=== PATIENT | female | born 1970 | race Caucasian/White ===

== ENCOUNTER 2018-09-13 22:51 | Emergency (ER) | payer MEDICARE, OTHER ==
--- NOTE | 2018-09-13 23:54 | ED ---
Extremity Problem HPI - General Chief complaint: Extremity Problem,Nontraumatic Stated complaint: leg pain Time Seen by Provider: 09/13/18 23:31 Source: patient Mode of arrival: ambulatory Limitations: no limitations - History of Present Illness Initial comments: Zulema is a obese 48yo female who presents to the ED tonight by private vehicle for evaluation of atraumatic right knee pain for 1 week duration. Patient states that 1 week ago she noticed her knee was aching. She describes it as a constant ache that is worse with ambulation but doesnt resolve with rest. She has tried heating pads and ice with no improvement. Tonight she was laying in bed and couldnt get comfortable so she came to the ER for further evaluation. Patient denies any associated symptoms including fever, chills, night sweats. She has no swelling or redness of the joint. - Related Data Home Medications Medication Instructions Recorded Confirmed Amitriptyline HCl [Elavil] 25 mg PO HS 09/13/18 09/13/18 Calcium Polycarbophil [Fiber-Lax] 625 mg PO DAILY 09/13/18 09/13/18 Celecoxib [CeleBREX] 200 mg PO HS 09/13/18 09/13/18 L.acidoph,Paracasei, B.lactis 1 cap PO DAILY 09/13/18 09/13/18 [Probiotic] Pregabalin [Lyrica] 200 mg PO BID 09/13/18 09/13/18 Previous Rx's Medication Instructions Recorded Acetaminophen Tab [Tylenol Tab] 500 mg PO Q6H #60 tablet 09/14/18 Ibuprofen [Motrin] 600 mg PO Q6HR PRN #60 tab 09/14/18 Allergies Allergy/AdvReac Type Severity Reaction Status Date / Time No Known Allergies Allergy Verified 09/13/18 23:06 Review of Systems ROS Statement: Those systems with pertinent positive or pertinent negative responses have been documented in the HPI. ROS Other: All systems not noted in ROS Statement are negative. Past Medical History Past Medical History: Hypertension, Osteoarthritis (OA) History of Any Multi-Drug Resistant Organisms: None Reported Past Surgical History: Appendectomy, Bariatric Surgery, Cholecystectomy, Orthopedic Surgery, Tubal Ligation Additional Past Surgical History / Comment(s): bilateral carpal tunnel; sinus surgery Past Psychological History: No Psychological Hx Reported Smoking Status: Current every day smoker Past Alcohol Use History: None Reported Past Drug Use History: None Reported General Exam - General Exam Comments Initial Comments: Physical Exam GENERAL: Patient is well-developed and well-nourished. Patient is nontoxic and well- hydrated and is in no distress. HENT: Normocephalic, Atraumatic. Edentulous EYES: PERRL, EOMI PULMONARY: Unlabored respirations. CARDIOVASCULAR: RRR ABDOMEN: Obese, Soft and non-distended SKIN: Skin is clear with no lesions or rashes and otherwise unremarkable. : Deferred NEUROLOGIC: Patient is alert and oriented x3. Moving all extremities spontaneously MUSCULOSKELETAL: Right knee with no effusion, no erythema or warmth, negative anterior and posterior drawer tests. Pain with kanwal and raul tests PSYCHIATRIC: Normal psychiatric evaluation. Limitations: no limitations Limitations: no limitations Course Vital Signs 09/13/18 09/14/18 22:55 01:24 Temperature 98.0 F 97.7 F Pulse Rate 91 74 Respiratory 18 15 Rate Blood Pressure 142/90 121/67 O2 Sat by Pulse 100 98 Oximetry Medical Decision Making - Medical Decision Making The patient was seen and evaluated, patient complains of 7 days of chronic aching knee pain, worse with ambulating. Patient has tried heat and ice but no NSAIDs or Tylenol treatment X-ray was ordered Toradol ordered for pain X-ray with no acute findings Patient was reevaluated, was sleeping comfortably in the ER [facility]. I woke the patient discussed the x-ray findings with her. I have a high suspicion for osteoarthritis is cause of her symptoms. I discussed with the patient treatment with Tylenol and Motrin and follow up with primary care with potential referral to sports medicine or orthopedic surgery for further evaluation and discussion of joint injections. All questions pertaining care were answered best my ability patient was discharged home in stable condition. Disposition Clinical Impression: Right knee pain Disposition: HOME SELF-CARE Condition: Good Instructions: Osteoarthritis (DC) Prescriptions: Acetaminophen Tab [Tylenol Tab] 500 mg PO Q6H #60 tablet Ibuprofen [Motrin] 600 mg PO Q6HR PRN #60 tab PRN Reason: Pain Is patient prescribed a controlled substance at d/c from ED?: No Referrals: None,Stated [Primary Care Provider] - 1-2 days
[2018-09-13] MEDS ORDERED: KETOROLAC 30 MG/ML 1 ML VIAL IM STA (23:55)
--- NOTE | 2018-09-14 00:34 | XR ---
EXAMINATION TYPE: XR knee limited RT DATE OF EXAM: 09/14/2018 COMPARISON: NONE HISTORY: Right knee pain and swelling TECHNIQUE: 2 views FINDINGS: I see no fracture nor dislocation. Joint spaces are normal. There is no sign of knee joint effusion. IMPRESSION: Negative right knee exam.
[2018-09-14 01:24] VITALS: BP 121/67; PULSE 74; RESP 15; TEMP 97.7
== END 2018-09-14 01:25 | disposition home or self-care (01) ==
LOC: EC 22:51
DX: M25.561 Pain in right knee (principal); I10 Essential (primary) hypertension; F17.200 Nicotine dependence, unspecified, uncomplicated; Z79.1 Long term (current) use of non-steroidal anti-inflammatories (NSAID); Z79.899 Other long term (current) drug therapy
CPT/HCPCS: 73560; 99283; 96372; J1885

== ENCOUNTER 2019-01-22 20:28 | Emergency (ER) | payer MEDICARE, OTHER ==
[2019-01-22 20:47] VITALS: TEMP 98.7
--- NOTE | 2019-01-22 20:51 | ED ---
Nausea/Vomiting/Diarrhea HPI - General Chief complaint: Nausea/Vomiting/Diarrhea Stated complaint: Abd pain Time Seen by Provider: 01/22/19 20:50 Source: patient, RN notes reviewed, old records reviewed Mode of arrival: ambulatory Limitations: no limitations - History of Present Illness Initial comments: This is a 48-year-old female the ER for evaluation. Patient is a one month of nausea vomiting diarrhea. Denies recent medical history. Patient does have bariatric surgery in her Surgical history. Noprior similar complaint. Patient is has not been doing well again for about a month. She is not been seen prior to these symptoms. She does have underlying fibromyalgia, no new medications or medication changes this MD complaint: nausea, vomiting, diarrhea, abdominal pain, other (Generalized pain) -: month(s) Description of Vomiting: food contents Description of Diarrhea: green Associated Abdominal Pain: Yes Location: diffuse Radiation: none Severity: mild Severity scale (1-10): 3 Quality: cramping, aching Consistency: intermittent Improves with: none Worsens with: none Associated Symptoms: myalgias, loss of appetite, nausea/vomiting, weakness - Related Data Home Medications Medication Instructions Recorded Confirmed No Known Home Medications 01/22/19 01/22/19 Allergies Allergy/AdvReac Type Severity Reaction Status Date / Time No Known Allergies Allergy Verified 01/22/19 20:58 Review of Systems ROS Statement: Those systems with pertinent positive or pertinent negative responses have been documented in the HPI. ROS Other: All systems not noted in ROS Statement are negative. Past Medical History Past Medical History: Fibromyalgia, Hypertension, Osteoarthritis (OA) History of Any Multi-Drug Resistant Organisms: None Reported Past Surgical History: Appendectomy, Bariatric Surgery, Cholecystectomy, Orthopedic Surgery, Tubal Ligation Additional Past Surgical History / Comment(s): bilateral carpal tunnel; sinus surgery Past Psychological History: No Psychological Hx Reported Smoking Status: Current every day smoker Past Alcohol Use History: None Reported Past Drug Use History: None Reported General Exam Limitations: no limitations General appearance: alert, in no apparent distress Head exam: Present: atraumatic, normocephalic, normal inspection Eye exam: Present: normal appearance, PERRL, EOMI. Absent: scleral icterus, conjunctival injection, periorbital swelling ENT exam: Present: normal exam, mucous membranes moist Neck exam: Present: normal inspection. Absent: tenderness, meningismus, lymphadenopathy Respiratory exam: Present: normal lung sounds bilaterally. Absent: respiratory distress, wheezes, rales, rhonchi, stridor Cardiovascular Exam: Present: regular rate, normal rhythm, normal heart sounds. Absent: systolic murmur, diastolic murmur, rubs, gallop, clicks GI/Abdominal exam: Present: soft, normal bowel sounds. Absent: distended, tenderness, guarding, rebound, rigid Extremities exam: Present: normal inspection, full ROM, normal capillary refill. Absent: tenderness, pedal edema, joint swelling, calf tenderness Back exam: Present: normal inspection Neurological exam: Present: alert, oriented X3, CN II-XII intact Psychiatric exam: Present: normal affect, normal mood Skin exam: Present: warm, dry, intact, normal color. Absent: rash Course Vital Signs 01/22/19 20:42 Temperature 98.7 F Pulse Rate 92 Respiratory 20 Rate Blood Pressure 149/105 O2 Sat by Pulse 99 Oximetry - Reevaluation(s) Reevaluation #1: 01/22/19 22:13 Medical record is reviewed Reevaluation #2: 01/22/19 22:13 Patient spoke at length regarding findings, Medical Decision Making - Medical Decision Making 48 female multiple nonspecific symptoms. No acute cause found for patient's symptoms. Patient will be discharged - Lab Data Result diagrams: 01/22/19 21:25 01/22/19 21:25 Lab Results 01/22/19 01/22/19 01/22/19 Range/Units 21:25 21:25 21:25 WBC 6.8 (3.8-10.6) k/uL RBC 4.63 (3.80-5.40) m/uL Hgb 13.8 (11.4-16.0) gm/dL Hct 42.7 (34.0-46.0) % MCV 92.3 (80.0-100.0) fL MCH 29.8 (25.0-35.0) pg MCHC 32.3 (31.0-37.0) g/dL RDW 13.8 (11.5-15.5) % Plt Count 249 (150-450) k/uL Neutrophils % 63 % Lymphocytes % 21 % Monocytes % 9 % Eosinophils % 3 % Basophils % 1 % Neutrophils # 4.3 (1.3-7.7) k/uL Lymphocytes # 1.4 (1.0-4.8) k/uL Monocytes # 0.6 (0-1.0) k/uL Eosinophils # 0.2 (0-0.7) k/uL Basophils # 0.1 (0-0.2) k/uL PT (9.0-12.0) sec INR (<1.2) APTT (22.0-30.0) sec Sodium 140 (137-145) mmol/L Potassium 4.1 (3.5-5.1) mmol/L Chloride 107 (98-107) mmol/L Carbon Dioxide 27 (22-30) mmol/L Anion Gap 6 mmol/L BUN 7 (7-17) mg/dL Creatinine 0.71 (0.52-1.04) mg/dL Est GFR (CKD-EPI)AfAm >90 (>60 ml/min/1.73 sqM) Est GFR (CKD-EPI)NonAf >90 (>60 ml/min/1.73 sqM) Glucose 83 (74-99) mg/dL Calcium 9.5 (8.4-10.2) mg/dL Phosphorus 3.2 (2.5-4.5) mg/dL Magnesium 2.0 (1.6-2.3) mg/dL Total Bilirubin 0.5 (0.2-1.3) mg/dL AST 19 (14-36) U/L ALT 29 (9-52) U/L Alkaline Phosphatase 109 (38-126) U/L Total Protein 7.3 (6.3-8.2) g/dL Albumin 4.0 (3.5-5.0) g/dL Urine Color Urine Appearance (Clear) Urine pH (5.0-8.0) Ur Specific [place] (1.001-1.035) Urine Protein (Negative) Urine Glucose (UA) (Negative) Urine Ketones (Negative) Urine Blood (Negative) Urine Nitrite (Negative) Urine Bilirubin (Negative) Urine Urobilinogen (<2.0) mg/dL Ur Leukocyte Esterase (Negative) Urine WBC (0-5) /hpf Ur Squamous Epith Cells (0-4) /hpf Urine Bacteria (None) /hpf Urine Mucus (None) /hpf Influenza Type A RNA Not Detected (Not Detectd) Influenza Type B (PCR) Not Detected (Not Detectd) 01/22/19 01/22/19 Range/Units 21:25 21:25 WBC (3.8-10.6) k/uL RBC (3.80-5.40) m/uL Hgb (11.4-16.0) gm/dL Hct (34.0-46.0) % MCV (80.0-100.0) fL MCH (25.0-35.0) pg MCHC (31.0-37.0) g/dL RDW (11.5-15.5) % Plt Count (150-450) k/uL Neutrophils % % Lymphocytes % % Monocytes % % Eosinophils % % Basophils % % Neutrophils # (1.3-7.7) k/uL Lymphocytes # (1.0-4.8) k/uL Monocytes # (0-1.0) k/uL Eosinophils # (0-0.7) k/uL Basophils # (0-0.2) k/uL PT 10.2 (9.0-12.0) sec INR 0.9 (<1.2) APTT 23.4 (22.0-30.0) sec Sodium (137-145) mmol/L Potassium (3.5-5.1) mmol/L Chloride (98-107) mmol/L Carbon Dioxide (22-30) mmol/L Anion Gap mmol/L BUN (7-17) mg/dL Creatinine (0.52-1.04) mg/dL Est GFR (CKD-EPI)AfAm (>60 ml/min/1.73 sqM) Est GFR (CKD-EPI)NonAf (>60 ml/min/1.73 sqM) Glucose (74-99) mg/dL Calcium (8.4-10.2) mg/dL Phosphorus (2.5-4.5) mg/dL Magnesium (1.6-2.3) mg/dL Total Bilirubin (0.2-1.3) mg/dL AST (14-36) U/L ALT (9-52) U/L Alkaline Phosphatase (38-126) U/L Total Protein (6.3-8.2) g/dL Albumin (3.5-5.0) g/dL Urine Color Yellow Urine Appearance Cloudy H (Clear) Urine pH 6.0 (5.0-8.0) Ur Specific [place] 1.016 (1.001-1.035) Urine Protein Negative (Negative) Urine Glucose (UA) Negative (Negative) Urine Ketones Negative (Negative) Urine Blood Negative (Negative) Urine Nitrite Negative (Negative) Urine Bilirubin Negative (Negative) Urine Urobilinogen <2.0 (<2.0) mg/dL Ur Leukocyte Esterase Negative (Negative) Urine WBC 1 (0-5) /hpf Ur Squamous Epith Cells 8 H (0-4) /hpf Urine Bacteria Rare H (None) /hpf Urine Mucus Few H (None) /hpf Influenza Type A RNA (Not Detectd) Influenza Type B (PCR) (Not Detectd) - EKG Data -: EKG Interpreted by Me (EKG shows sinus rhythm rate of 82, TX 120, QRS 70, QTc 4:30) - Radiology Data Radiology results: report reviewed (CT chest abdomen pelvis is negative for acute disae), image reviewed Disposition Clinical Impression: Nausea & vomiting, Dehydration, Diarrhea Disposition: HOME SELF-CARE Condition: Good Instructions (If sedation given, give patient instructions): Acute Nausea and Vomiting (ED), Acute Diarrhea (ED) Is patient prescribed a controlled substance at d/c from ED?: No Referrals: Nataliya Jacinto DO [Primary Care Provider] - 1-2 days
[2019-01-22] MEDS ORDERED: SODIUM CHLORIDE 0.9% 1,000 ML IV STA (20:57)
[2019-01-22] MEDS ORDERED: KETOROLAC 30 MG/ML 1 ML VIAL IVP STA (20:58)
[2019-01-22] MEDS ORDERED: ACETAMINOPHEN IV (For NPO) 1,000 MG in EMPTY BAG 1 BAG IVPB ONE (21:00)
[2019-01-22 21:49] LABS: Basophils # (A) 0.1 k/uL (0-0.2); Basophils % (A) 1 %; Eosinophils # (A) 0.2 k/uL (0-0.7); Eosinophils % (A) 3 %; HCT 42.7 % (34.0-46.0); HGB 13.8 gm/dL (11.4-16.0); Lymphocytes # (A) 1.4 k/uL (1.0-4.8); Lymphocytes % (A) 21 %; MCH 29.8 pg (25.0-35.0); MCHC 32.3 g/dL (31.0-37.0); MCV 92.3 fL (80.0-100.0); Mean Platelet Volume 8.7; Monocytes # (A) 0.6 k/uL (0-1.0); Monocytes % (A) 9 %; Neutrophils # (A) 4.3 k/uL (1.3-7.7); Neutrophils % (A) 63 %; Platelet Count 249 k/uL (150-450); RBC 4.63 m/uL (3.80-5.40); RDW 13.8 % (11.5-15.5); WBC 6.8 k/uL (3.8-10.6)
[2019-01-22 22:00] LABS: INR 0.9 (<1.2); Partial Thromboplastin Time 23.4 sec (22.0-30.0); Prothrombin Time 10.2 sec (9.0-12.0)
[2019-01-22 22:03] LABS: Appearance,Urine Cloudy (Clear); Bacteria,Urine Rare /hpf; Bilirubin,Urine Negative (Negative); Blood,Urine Negative (Negative); Color,Urine Yellow; Glucose,Urine (UA) Negative (Negative); Ketones,Urine Negative (Negative); Leukocyte Esterase,Urine Negative (Negative); Mucus,Urine Few /hpf; Nitrite,Urine Negative (Negative); Protein,Urine Negative (Negative); Specific Gravity,Urine 1.016 (1.001-1.035); Squamous Epithelial Cell,Urine 8 /hpf (0-4); Urobilinogen,Urine <2.0 mg/dL (<2.0)
--- NOTE | 2019-01-22 22:04 | CT ---
EXAMINATION TYPE: CT ChestAbdPelvis w con DATE OF EXAM: 01/22/2019 COMPARISON: CT abdomen and pelvis February 06, 2012. HISTORY: Cough, congestion and generalized abdomen pain. CT DLP: 1898.2 mGycm. Automated Exposure Control for Dose Reduction was Utilized. CONTRAST: CT scan of the thorax, abdomen and pelvis is performed without oral but with IV Contrast, patient inj ected with 100 mL of Isovue 300. FINDINGS: LUNGS: The lungs are grossly clear, there is no concerning parenchymal mass or nodule identified. T here is no pleural effusion or pneumothorax seen. The tracheobronchial tree is patent. MEDIASTINUM: There are no greater than 1 cm hilar or mediastinal lymph nodes. No cardiomegaly or pe ricardial effusion is seen. OTHER: No additional significant abnormality is seen. LIVER/GB: Cholecystectomy clips are redemonstrated. PANCREAS: No significant abnormality is seen. SPLEEN: No significant abnormality is seen. ADRENALS: No significant abnormality is seen. KIDNEYS: No significant abnormality is seen. BOWEL: No suspicious small or large bowel dilatation is present. Surgical sutures from gastric sleev e procedure are now present epigastric region. GENITAL ORGANS: Anteverted uterus is seen. LYMPH NODES: No greater than 1cm abdominal or pelvic lymph nodes are appreciated. OSSEOUS STRUCTURES: No significant abnormality is seen. OTHER: No significant additional abnormality is seen. IMPRESSION: 1. No suspicious acute pulmonary process. 2. No bowel obstruction. No acute finding identified.
[2019-01-22 22:10] LABS: ALT 29 U/L (9-52); AST 19 U/L (14-36); Alkaline Phosphatase 109 U/L (38-126); Anion Gap 6 mmol/L; Blood Urea Nitrogen 7 mg/dL (7-17); Calcium 9.5 mg/dL (8.4-10.2); Carbon Dioxide 27 mmol/L (22-30); Chloride 107 mmol/L (98-107); Glucose 83 mg/dL (74-99); Phosphorus 3.2 mg/dL (2.5-4.5); Potassium 4.1 mmol/L (3.5-5.1); Sodium 140 mmol/L (137-145); Total Bilirubin 0.5 mg/dL (0.2-1.3); Total Protein 7.3 g/dL (6.3-8.2)
[2019-01-22 23:12] VITALS: BP 123/81; PULSE 71; RESP 16
[2019-01-23 15:43] LABS: RBC,Urine 1 /hpf (0-5)
== END 2019-01-22 23:15 | disposition home or self-care (01) ==
LOC: EC 20:28
DX: E86.0 Dehydration (principal); R11.2 Nausea with vomiting, unspecified; R19.7 Diarrhea, unspecified; R10.84 Generalized abdominal pain; M19.90 Unspecified osteoarthritis, unspecified site; F17.200 Nicotine dependence, unspecified, uncomplicated; Z90.49 Acquired absence of other specified parts of digestive tract; Z98.84 Bariatric surgery status
CPT/HCPCS: 36415; 93005; 83880; 80053; 83605; 83735; 84100; 84443; 84484; 85025; 85610; 85730; 81001; 87502; 71260; 74177; 99285; 96374; 96375; J1885; J0131; Q9967

== ENCOUNTER 2019-04-16 23:47 | Emergency (ER) | payer MEDICARE, OTHER ==
--- NOTE | 2019-04-16 23:50 | ED ---
General Adult HPI - General Stated complaint: Headache Time Seen by Provider: 04/16/19 23:49 - History of Present Illness Initial comments: Zulema is a 48-year-old female with history of chronic headaches who presents the emergency department today for evaluation of headache. Patient reports that she has cervical spine fusion at [facility] approximately a month ago, she is currently wearing a cervical collar. She reports that since that surgery she's not been experiencing any headaches. She states that she was in her usual state of health throughout the day today. She was outside running errands all day with out any complaints. She reports that upon arrival home he somewhat nauseated to then decided to sit down in her chair to relax and get more comfortable, at which time she developed a pounding headache similar in character to previous headaches. Patient reports that while sitting in her chair the headache got worse she felt as though she cannot move her entire body or speak. She states she felt like the pain was so bad she was going to pass out. She never lost consciousness. She then asked her family to contact EMS to bring the hospital for evaluation. Headache was not sudden in onset, was not thunderclap, is not the worse headache of her life, is similar to previous headaches. - Related Data Home Medications Medication Instructions Recorded Confirmed Gabapentin [Neurontin] 300 mg PO TID 04/17/19 04/17/19 traMADol HCL [Ultram] 50 mg PO Q6HR PRN 04/17/19 04/17/19 Allergies Allergy/AdvReac Type Severity Reaction Status Date / Time No Known Allergies Allergy Verified 04/16/19 23:58 Review of Systems ROS Statement: Those systems with pertinent positive or pertinent negative responses have been documented in the HPI. ROS Other: All systems not noted in ROS Statement are negative. Past Medical History Past Medical History: Fibromyalgia, Hypertension, Osteoarthritis (OA) Additional Past Medical History / Comment(s): morbid obesity History of Any Multi-Drug Resistant Organisms: None Reported Past Surgical History: Appendectomy, Bariatric Surgery, Cholecystectomy, Orthopedic Surgery, Tubal Ligation Additional Past Surgical History / Comment(s): bilateral carpal tunnel; sinus surgery Past Psychological History: No Psychological Hx Reported Smoking Status: Current every day smoker Past Alcohol Use History: None Reported Past Drug Use History: None Reported General Exam - General Exam Comments Initial Comments: GENERAL: Patient is well-developed and well-nourished. Patient is nontoxic and well-hydrated and is in no distress. HENT: Normocephalic, Atraumatic. Oropharynx is clear. Dry mucous membranes. Cervical spine in the hard collar Edentulous EYES: The sclera were anicteric and conjunctiva were pink and moist. Extraocular movements were intact and pupils were equal round and reactive to light. Eyelids were unremarkable. PULMONARY: Unlabored respirations. Good breath sounds bilaterally. No audible rales rhonchi or wheezing was noted. CARDIOVASCULAR: There is a regular rate and rhythm without any murmurs gallops or rubs. ABDOMEN: Obese, soft and nontender with normal bowel sounds. SKIN: Skin is clear with no lesions or rashes and otherwise unremarkable. NEUROLOGIC: Patient is alert and oriented x3. Cranial nerves II through XII are grossly intact. Motor and sensory are also intact. Normal speech, volume and content. Symmetrical smile. MUSCULOSKELETAL: Normal extremities with adequate strength and full range of motion. No lower extremity swelling or edema. No calf tenderness. PSYCHIATRIC: Anxious Course Vital Signs 04/16/19 04/17/19 23:50 01:19 Temperature 98 F 98.3 F Pulse Rate 64 93 Respiratory 18 16 Rate Blood Pressure 146/100 128/88 O2 Sat by Pulse 98 98 Oximetry - Reevaluation(s) Reevaluation #1: 04/17/19 01:03 Patient was re-evaluated, she was sleeping comfortably, I woke the patient and discussed her lab and CT results with her. At this time the patient is feeling much better her headache is resolved and she is comfortable with the plan for discharge home. Medical Decision Making - Medical Decision Making The patient was seen and evaluated history was obtained from EMS and the patient As a 48-year-old female with a history of chronic headaches, has not had a he adache or migraine for approximately one month presenting today with a headache that developed this evening he began with nausea and then developed into a headache. Patient felt for transient moment that she cannot move her entire body Ur speak, this resolved, she also states feeling as though the pain was so bad she would pass out however she did not lose consciousness or have altered mental status. Headache is not associated with any fevers, chills, vision changes and it was not sudden in onset, it is not thunderclap, it is similar to previous headaches. Will obtain a computed tomography scan of the head and treat for migraine CT head unremarkable Patient sleeping comfortably, would like to be discharged home. - Lab Data Result diagrams: 04/17/19 00:05 04/17/19 00:05 Lab Results 04/17/19 04/17/19 Range/Units 00:05 00:05 WBC 8.3 (3.8-10.6) k/uL RBC 4.38 (3.80-5.40) m/uL Hgb 13.0 (11.4-16.0) gm/dL Hct 39.1 (34.0-46.0) % MCV 89.3 (80.0-100.0) fL MCH 29.7 (25.0-35.0) pg MCHC 33.2 (31.0-37.0) g/dL RDW 13.6 (11.5-15.5) % Plt Count 225 (150-450) k/uL Neutrophils % 72 % Lymphocytes % 19 % Monocytes % 4 % Eosinophils % 4 % Basophils % 1 % Neutrophils # 5.9 (1.3-7.7) k/uL Lymphocytes # 1.6 (1.0-4.8) k/uL Monocytes # 0.3 (0-1.0) k/uL Eosinophils # 0.3 (0-0.7) k/uL Basophils # 0.1 (0-0.2) k/uL Sodium 142 (137-145) mmol/L Potassium 3.5 (3.5-5.1) mmol/L Chloride 110 H (98-107) mmol/L Carbon Dioxide 21 L (22-30) mmol/L Anion Gap 11 mmol/L BUN 7 (7-17) mg/dL Creatinine 0.71 (0.52-1.04) mg/dL Est GFR (CKD-EPI)AfAm >90 (>60 ml/min/1.73 sqM) Est GFR (CKD-EPI)NonAf >90 (>60 ml/min/1.73 sqM) Glucose 94 (74-99) mg/dL Calcium 9.2 (8.4-10.2) mg/dL Magnesium 2.1 (1.6-2.3) mg/dL Total Bilirubin 0.4 (0.2-1.3) mg/dL AST 16 (14-36) U/L ALT 10 (9-52) U/L Alkaline Phosphatase 110 (38-126) U/L Total Protein 7.3 (6.3-8.2) g/dL Albumin 4.1 (3.5-5.0) g/dL Disposition Clinical Impression: Headache Disposition: ADMITTED IP TO THIS [facility] Condition: Stable Instructions (If sedation given, give patient instructions): Acute Headache (ED) Is patient prescribed a controlled substance at d/c from ED?: No Referrals: Nataliya Jacinto DO [Primary Care Provider] - 1-2 days
[2019-04-16] MEDS ORDERED: METOCLOPRAMIDE 5 MG/ML 2 ML VIAL IVP STA (23:57)
[2019-04-16] MEDS ORDERED: diphenhydrAMINE 50 MG/ML 1 ML VIAL IVP STA (23:57)
[2019-04-16] MEDS ORDERED: SODIUM CHLORIDE 0.9% 1,000 ML IV STA (23:57)
[2019-04-17 00:29] LABS: Basophils # (A) 0.1 k/uL (0-0.2); Basophils % (A) 1 %; Eosinophils # (A) 0.3 k/uL (0-0.7); Eosinophils % (A) 4 %; HCT 39.1 % (34.0-46.0); Lymphocytes # (A) 1.6 k/uL (1.0-4.8); Lymphocytes % (A) 19 %; MCH 29.7 pg (25.0-35.0); MCHC 33.2 g/dL (31.0-37.0); MCV 89.3 fL (80.0-100.0); Mean Platelet Volume 8.5; Monocytes # (A) 0.3 k/uL (0-1.0); Monocytes % (A) 4 %; Neutrophils # (A) 5.9 k/uL (1.3-7.7); Neutrophils % (A) 72 %; Platelet Count 225 k/uL (150-450); RBC 4.38 m/uL (3.80-5.40); RDW 13.6 % (11.5-15.5); WBC 8.3 k/uL (3.8-10.6)
[2019-04-17 00:44] LABS: ALT 10 U/L (9-52); AST 16 U/L (14-36); African American GFR (CKD) >90 (>60 ml/min/1.73 sqM); Albumin 4.1 g/dL (3.5-5.0); Alkaline Phosphatase 110 U/L (38-126); Anion Gap 11 mmol/L; Blood Urea Nitrogen 7 mg/dL (7-17); Calcium 9.2 mg/dL (8.4-10.2); Carbon Dioxide 21 mmol/L (22-30); Chloride 110 mmol/L (98-107); Glucose 94 mg/dL (74-99); Magnesium 2.1 mg/dL (1.6-2.3); Potassium 3.5 mmol/L (3.5-5.1); Sodium 142 mmol/L (137-145); Total Bilirubin 0.4 mg/dL (0.2-1.3); Total Protein 7.3 g/dL (6.3-8.2)
--- NOTE | 2019-04-17 00:50 | CT ---
EXAM: CT Head Without Intravenous Contrast CLINICAL HISTORY: Headache TECHNIQUE: Axial computed tomography images of the head/brain without intravenous contrast. CTDI is 0.085, 0.085, 49.1 mGy and DLP is 1056.4 mGy-cm. This CT exam was performed using one or more of the following dose reduction techniques: automated exposure control, adjustment of the mA and/or kV according to patient size, and/or use of iterative reconstruction technique. COMPARISON: No relevant prior studies available. FINDINGS: Brain: No acute infarct, hemorrhage, mass or edema. No significant white matter disease. Ventricles: Unremarkable. No ventriculomegaly. Bones/joints: Unremarkable. No acute fracture. Soft tissues: Unremarkable. Sinuses: Mild mucosal thickening the paranasal sinuses. Mastoid air cells: Unremarkable as visualized. No mastoid effusion. IMPRESSION: No acute findings.
[2019-04-17 01:33] VITALS: BP 128/88; PULSE 93; RESP 16; TEMP 98.3
== END 2019-04-17 01:19 | disposition other institution (70) ==
LOC: EC 23:47
DX: R51 Headache (principal); G89.29 Other chronic pain; M79.7 Fibromyalgia; F17.200 Nicotine dependence, unspecified, uncomplicated; E66.01 Morbid (severe) obesity due to excess calories; Z68.42 Body mass index [BMI] 45.0-49.9, adult; Z79.899 Other long term (current) drug therapy; Z98.1 Arthrodesis status; Z98.84 Bariatric surgery status
CPT/HCPCS: 36415; 80053; 83735; 85025; 70450; 99285; 96374; 96375; 96361; J1200; J2765

== ENCOUNTER → 2019-07-06 | Outpatient (CLI) | payer MEDICARE, OTHER ==
--- NOTE | 2019-07-06 11:00 | XR ---
EXAMINATION TYPE: XR foot complete LT DATE OF EXAM: 07/06/2019 COMPARISON: NONE HISTORY: Pain TECHNIQUE: Three views are submitted. FINDINGS: The osseous structures are intact. There is no acute fracture or dislocation. Mild arthropathy of the first plantar calcaneal spur noted. Hammertoe deformities noted. IMPRESSION: 1. Mild first MTP joint arthropathy. 2. Calcaneal spurs.
--- NOTE | 2019-07-07 07:50 | ECHOS ---
STRESS ECHOCARDIOGRAM DATE OF SERVICE: 07/06/2019 INDICATIONS: Chest pain. MEDICATIONS: BASELINE HEART RATE: 63 BASELINE BLOOD PRESSURE: 100/65 MAXIMUM HEART RATE: 140 MAXIMUM BLOOD PRESSURE: 161/45 85% MPHR: 147 100% MPHR: 173 METS: 9.5 MAXIMUM STAGE REACHED: III TOTAL EXERCISE TIME: 8 minutes CLINICAL INFORMATION: STRESS DATA: Heart rate 63, pressure is 100/65 mmHg. Baseline EKG showed sinus mechanism with T-wave inversion in the inferolateral leads. The patient exercised on the treadmill according to Kamlesh protocol for a total of 8 minutes and achieved 9.5 METs. Max heart rate was 140 which is about 83% of maximum predicted heart rate. Maximum blood pressure was 161/45 mmHg. Clinically, the patient did not have any symptoms of chest pain or chest discomfort. The EKG showed extensive baseline artifact, but there was no obvious ST or T-wave abnormalities concerning for ischemia. ANALYSIS: On echocardiogram images from parasternal long axis view, parasternal short axis view, apical 4 chamber and apical 2 chamber view were obtained as the baseline images, at the peak of the heart rate as well as on recovery and the echocardiogram images showed good augmentation in the left ventricular systolic function without any evidence of wall motion abnormalities concerning for ischemia. CONCLUSION: 1. Good exercise tolerance. 2. Normal EKG in response to exercise. 3. Normal echocardiogram in response to exercise. MMODL / IJN: [id number] /
== END | disposition home or self-care (01) ==
LOC: RADNMMAIN 09:42
PROVIDERS: ATTEND Family Medicine
DX: R07.9 Chest pain, unspecified (principal); M19.072 Primary osteoarthritis, left ankle and foot
CPT/HCPCS: 93351

== ENCOUNTER → 2019-09-08 | Outpatient (CLI) | payer MEDICARE, OTHER ==
[2019-09-08 13:28] VITALS: BP 127/91; PULSE 77; RESP 18; TEMP 98.2; BMI 38.5
--- NOTE | 2019-09-08 14:38 | P.GSHP ---
History of Present Illness H&P Date: 09/08/19 Chief Complaint: abnromal mammogram Zulema is a 49 year old white female who had a routine mammogram performed on 9618. This revealed some nodular asymmetry in the lateral aspect of the left breast for which a diagnostic mammogram was recommended this was performed on 1318. This revealed a 6 mm in diameter density not present on prior mammograms. An ultrasound was performed and ultrasound did not show any cystic or solid lesions of concern. The patient herself does not feel anything of concern in her breast. The patient denies any masses nipple discharge or skin changes. She has had 2 prior left breast core biopsies which were benign. Her last biopsy was over ten years ago. She complains of a throbbing sensation in her left breast. It is intermittent. She is uncertain as to what precipitated. In the inferior lower quadrants of the breast. It does not spread any place. She drinks Mountian Dew 3/20 oz /day, no coffee; Smokes <1PPD, she is not exposed to second hand smoke, she does not eat chocolate Family History: maternal aunt: of breast cancer in 40's paternal aunt: bilateral mastectomy, bilateral breast cancer Hormonal History: menarche: 12 , 1 miscarage, breast fed: none, first born at 22 menopasue:ablation done at 41 no periods since than, uncertain if have gone through menopause BCP: 15 years hormones: none Surgical history: 1. Cervical fusion 2. tubal Ligation 3. Bilateral carpal tunnel 4. cholycystectomy 5. weight loss surgery 6. appendectomy Medical History: 1. asthma 2. back pain/ DJD Social History: smoke: less than 1 PPD stopped since 18 alcohol: none drugs: none - Constitutional Constitutional: Denies chills, Denies fever - EENT Eyes: bilateral blurred vision, bilateral pain Ears: bilateral: tinnitus, deny: decreased hearing Ears, nose, mouth and throat: Reports headache - Breasts Breasts: bilateral: as per HPI - Cardiovascular Cardiovascular: Reports high blood pressure - Respiratory Respiratory: Denies cough, Denies 7 - Gastrointestinal Gastrointestinal: Reports diarrhea, Denies abdominal pain, Denies nausea, Denies vomiting - Genitourinary (Female) Genitourinary: Denies dysuria, Denies hematuria - Menstruation Menstruation: Reports premenarcheal - Musculoskeletal Comment: arthritis, DJD, fibromyalgia Musculoskeletal: Reports myalgias - Integumentary Integumentary: Denies pruritus, Denies rash - Neurological Neurological: Denies numbness, Denies weakness - Psychiatric Psychiatric: Reports anxiety - Endocrine Comment: loosing weight not related to surgery Endocrine: Reports weight change - Hematologic/Lymphatic Comment: none - Allergic/Immunologic Allergic/Immunologic: Reports seasonal allergies Past Medical History Past Medical History: Fibromyalgia, Hypertension, Osteoarthritis (OA) Additional Past Medical History / Comment(s): morbid obesity History of Any Multi-Drug Resistant Organisms: None Reported Date of last positivie culture/infection: 2010 MDRO Source:: left arm Past Surgical History: Appendectomy, Bariatric Surgery, Cholecystectomy, Orthopedic Surgery, Tubal Ligation Additional Past Surgical History / Comment(s): bilateral carpal tunnel; sinus surgery Past Psychological History: No Psychological Hx Reported Smoking Status: Current every day smoker Past Alcohol Use History: None Reported Past Drug Use History: None Reported Medications and Allergies Home Medications Medication Instructions Recorded Confirmed Type Pregabalin [Lyrica] 50 mg PO TID 09/08/19 09/08/19 History Allergies Allergy/AdvReac Type Severity Reaction Status Date / Time No Known Allergies Allergy Verified 09/08/19 13:28 Surgical - Exam Vital Signs Temp Pulse Resp BP Pulse Ox 98.2 F 77 18 127/91 98 09/08/19 13:25 09/08/19 13:25 09/08/19 13:25 09/08/19 13:25 09/08/19 13:25 BMI 38.5 - General obese - Eyes normal ocular movement - ENT no hearing loss, no congestion - Neck no masses, trachea midline, no lymphadectomy - Respiratory normal respiratory effort, clear to auscultation - Cardiovascular Rhythm: regular Heart Sounds: normal: S1, S2 - Abdomen Abdomen: soft, non tender, no guarding, no rigid, no rebound - Integumentary normal turgor - Neurologic no disoriented, no combative - Musculoskeletal normal gait, normal posture - Psychiatric oriented to time, oriented to person, oriented to place, speech is normal, memory intact breast exam: bra 42DD ptosis: Grade 3 right breast larger than left breast Right breast: Multi-positional exam fibrocystic changes, no dominant masses or nodules of concern Right axilla: No adenopathy of concern Left breast: Multiple positional exam increased fullness upper-outer quadrant area tender to palpation no definite discrete mass or nodule Left axilla: No adenopathy of concern Results Mammogram reviewed with radiology, the recommendation is that the nodularity appears to be new and stereotactic core biopsy is recommended. Assessment and Plan Assessment: Impression: 1. Mammographic abnormality left breast 2. Pain left breast 3. Caffeine via Mountain Dew and nicotine via smoking consumption most likely contributing to fibrocystic breast changes and pain 4. Fibrocystic breast changes 5. Family history of breast cancer on both maternal and paternal side 6. Arthritis 7. Headaches 8. GI urgency/diarrhea 9. DJD Plan: 1. Recommend stereotactic core biopsy left breast 2. We must take into consideration the patient's arthritis and degenerative joint disease causing it to be more uncomfortable and possibly difficult for her to lay on the stereo table, I discussed this with her and she is going to attempt to do so. 3. I discussed the cause of breast pain may be related to the Mountain Dew and cigarette smoking and the patient is going to attempt to decrease her consumption of these things 4. Medical management of medical conditions 5. Follow-up after stereotactic core biopsy 35 minutes spent with patient > 50% face time CC:Dr. Bach
== END | disposition home or self-care (01) ==
LOC: WWCWWP 13:12
PROVIDERS: ATTEND Surgery
DX: Z53.9 Procedure and treatment not carried out, unspecified reason (principal)

== ENCOUNTER → 2019-11-03 | Day surgery (SDC) | payer MEDICARE, OTHER ==
[2019-11-03 09:18] VITALS: BP 117/86; PULSE 56; RESP 16; TEMP 97.5
--- NOTE | 2019-11-03 09:25 | MM ---
EXAMINATION TYPE: MG stereo VAD BX LT DATE OF EXAM: 11/03/2019 COMPARISON: Outside mammograms dated 07/08/2019 and 07/15/2019 CLINICAL HISTORY: Left breast biopsy for left focal asymmetry. TECHNIQUE: Stereotactic guided core biopsy of left breast. FINDINGS: The procedure of stereotactic guided core biopsy was explained to the patient. Benefits, alternatives, and risks were discussed. An informed consent was then obtained. Preprocedural timeout was performed. [facility] was [facility]. Shortness pathway was CC from above approach. I performed the localization, then surgeon, Dr. Abhijeet Frank performed the remainder of the procedure. A vacuum assisted biopsy gun was used to obtain multiple core samples. The patient tolerated the procedure well without any immediate complication. The patient was kept in the radiology department for short stay after the procedure and then discharged home in stable condition. Targeted calcifications are identified in specimen mammogram. Post biopsy mammogram demonstrates questionable placement of the biopsy marker relative to the targeted area of concern on the preprocedure images. There is a small hematoma obscuring the left lower outer quadrant focal asymmetry. IMPRESSION: SUCCESSFUL, UNCOMPLICATED STEREOTACTIC GUIDED CORE BIOPSY OF AREA OF A LEFT LOWER OUTER QUADRANT FOCAL ASYMMETRY, FULL PATHOLOGY RESULTS TO FOLLOW. IF RAD/PATHOLOGIC CORRELATION IS DISCORDANT THE PATIENT SHOULD BE BROUGHT BACK FOR ADDITIONAL MLO AND CC VIEWS TO ASSESS FOR BIOPSY MARKER PLACEMENT IN COMPARISON TO THE ORIGINAL SCREENING MAMMOGRAM. Pathology Results: High Risk LEFT BREAST LESION, NEEDLE CORE BIOPSIES: Fat necrosis, pigmented histiocytes consistent with hemosiderin, fibrocystic changes including intraductal papillomatosis and some evidence of duct ectasia. Negative for malignant neoplasm. Recommendation Surgical consult of the left breast. Intraductal papillomatosis. MTDD
--- NOTE | 2019-11-03 15:01 | P.PCN ---
Date of Procedure: 11/03/19 Preoperative Diagnosis: Mammographic abnormality left breast Postoperative Diagnosis: same Procedure(s) Performed: Left breast stereotactic core biopsy Anesthesia: local Surgeon: Naila Acuña Estimated Blood Loss (ml): 0 Pathology: other (Breast tissue) Condition: stable Disposition: same day Indications for Procedure: 6 mm density in left breast not present on prior mammograms. An ultrasound was performed which did not show evidence of the lesion. Operative Findings: Dense breast tissue Description of Procedure: Zulema is a 49-year-old white female who was noted to have a 6 mm area of density in her left breast on mammographic evaluation. This was not seen on ultrasound. Stereotactic core biopsy was recommended. Risk and benefits of the procedure were discussed with the patient. The patient chose to proceed. The patient was brought to the stereotactic core biopsy room. She was positioned on the stereotactic table. CC from below approach was used. A protective signal operations supervisor film was obtained. The lesion was identified. The lesion was targeted. The breast was prepped using Betadine. 20 mL of 1% lidocaine were used to anesthetize the area of concern. A 9-gauge core biopsy needle was driven to the correct coordinates. This was a 9-gauge vacuum-assisted core rotating biopsy needle. The needle was fired and a radiograph was obtained to show that the needle was in the correct location. This was confirmed and 7 core biopsies were obtained. No radiograph of the specimen was obtained as this was done for density. A secure tate marker was placed. Post biopsy films revealed the marker to be in the correct location. The patient tolerated the procedure in stable condition. The specimen was sent for pathology. The patient will follow-up with Dr. Jha in 1 week.
== END ==
LOC: RADMAMWWP 07:41
PROVIDERS: ATTEND Surgery
DX: N64.1 Fat necrosis of breast (principal); N60.12 Diffuse cystic mastopathy of left breast; N60.42 Mammary duct ectasia of left breast
CPT/HCPCS: 88305; 19081; A4648; J2001

== ENCOUNTER → 2019-11-11 | Outpatient (CLI) | payer MEDICARE, OTHER ==
[2019-11-11 15:57] VITALS: BP 116/79; PULSE 88; RESP 18; TEMP 98.1
--- NOTE | 2019-11-11 16:09 | P.PN ---
Subjective Progress Note Date: 11/11/19 Principal diagnosis: intraductal papilomatosis Denis is a 49-year-old white female status post left breast are detected core biopsy from 1220. Pathology was benign fat necrosis, pigmented histiocytes, fibrocystic changes including intraductal papillomatosis and some duct ectasia. The specimen was negative for malignant neoplasia. The pathology has been reviewed with Dr. Goss there is no intraductal papilloma just intraductal papillomatosis. The patient states she had some ecchymosis following the procedure but otherwise is doing well. Patient's x-rays were visually reviewed with the radiologist. Patient's pathology was discussed with pathology. Objective - Vital Signs Vital signs: Vital Signs Temp 98.1 F 11/11/19 15:54 Pulse 88 11/11/19 15:54 Resp 18 11/11/19 15:54 BP 116/79 11/11/19 15:54 Pulse Ox 99 11/11/19 15:54 Intake & Output 11/10/19 11/11/19 11/11/19 18:59 06:59 18:59 Weight 83.915 kg - Exam BMI 36.1 - Constitutional General appearance: Present: obese - EENT Eyes: Present: EOMI ENT: Present: hearing grossly normal - Respiratory Respiratory: bilateral: CTA - Cardiovascular Rhythm: regular Heart sounds: normal: S1, S2 - Integumentary Integumentary: Present: normal turgor - Musculoskeletal Musculoskeletal: Present: gait normal - Psychiatric Psychiatric: Present: A&O x's 3, appropriate affect, intact judgment & insight - Additional findings Additional findings: Left breast: Biopsy site mild ecchymosis Small hematoma at biopsy site no evidence of infection Assessment and Plan Assessment: Impression: 1. Benign stereotactic core biopsy left breast 2. Fibrocystic breast changes 3. Fat necrosis left breast 4. Intraductal papillomatosis I discussed with the patient that intraductal papillomatosis is different than an intraductal papilloma. This is not felt to be high risk after discussion with the pathologist. I have reviewed her case with the radiologist and he likewise feels that this is not a high risk lesion radiographically. We will therefore most likely repeat left breast mammogram in 6 months time with physician exam at that time. Plan: 1. Left breast mammogram 6 months with physician exam at that time Cc: Dr. Bach Encounter 20 minutes, greater than 50% of time spent counseling and planning Time with Patient: Less than 30
== END ==
LOC: WWCWWP 15:42
PROVIDERS: ATTEND Surgery
DX: Z53.9 Procedure and treatment not carried out, unspecified reason (principal)

== ENCOUNTER → 2020-08-03 | Outpatient (CLI) | payer MEDICARE, OTHER ==
--- NOTE | 2020-08-03 14:39 | MM ---
Reason for exam: additional evaluation requested from prior study. Last mammogram was performed 7 years and 10 months ago. History: Patient has history of high-risk lesion on a previous biopsy at age 49. Family history of breast cancer in aunt at age 40 and premenopausal breast cancer in aunt at age 36. High risk MG stereo VAD BX LT of the left breast, November 03, 2019. Benign stereotactic core biopsy of the left breast, April 20, 2009. Benign US left guided VAD of the left breast, March 30, 2009. Took hormonal contraceptives for 1 year beginning at age 21. Physical Findings: Nurse did not find any significant physical abnormalities on exam. MG 3D Diag Mammo W/Cad SATHISH Bilateral CC and MLO view(s) were taken. Prior study comparison: May 17, 2020, mammogram. July 15, 2019, mammogram. July 08, 2019, mammogram. There are scattered fibroglandular densities. Stable benign calcifications. There is no discrete abnormality. No significant new findings when compared with previous films. These results were verbally communicated with the patient and result sheet given to the patient on 08/03/20. ASSESSMENT: Benign, BI-RAD 2 RECOMMENDATION: Routine screening mammogram of both breasts in 1 year.
== END | disposition home or self-care (01) ==
LOC: RADMAMWWP 13:41
PROVIDERS: ATTEND Surgery
DX: R92.8 Other abnormal and inconclusive findings on diagnostic imaging of breast (principal)
CPT/HCPCS: 77066; G0279; 77062

== ENCOUNTER → 2020-08-08 | Outpatient (CLI) | payer MEDICARE, OTHER ==
[2020-08-08 14:44] VITALS: BP 127/88; PULSE 88; RESP 18; TEMP 98.3; BMI 34.9
--- NOTE | 2020-08-08 16:05 | P.HPBAR ---
Bariatric H&P - History & Physicial H&P Date: 08/08/20 History & Physicial: Visit/CC: new patient Patient initial contact: Initial weight: 81.193 kg Initial weight in pounds: 179.00 Height: 5 ft Initial BMI: 34.9 Last weight: Current weight: 81.193 kg Current weight in pounds: 179.00 Current BMI: 34.9 [place] body weight (based on NIH guidelines): 45.359 kg Excess body weight loss: 0.0% The patient is a 49 year-old F who presents for Bariatric Assessment. She had surgery with Dr. Lopes in 2017. Highest 285 pounds. She has sleeve. She had appendix out same week. She reported acid reflux before her surgery and is coming back. She struggled with keeping her weight loss and now has weight regain. Lowest weight is present. She lost over 100 pounds. Her eating habit has changed. Cannot eat a full sandwich. No vomiting but has nausea and getting worse. She reports constipation for 2 weeks at a time. No recent colonoscopy. No family history of colon cancer. Her mother had a colectomy for another reason, "had to shorten her colon." Colon issues run in the family including her akbar theodore. She reports choking on foods. No food diary journal. She is 2 years out from bariatric labs. She is transferring care. She was living in [place] where [facility]. 1. Labs 2. Esophagram. 3. Hold on EGD after esophagram. Past Medical History Past Medical History: Fibromyalgia, Osteoarthritis (OA) Additional Past Medical History / Comment(s): degenerative disc disease, back pain History of Any Multi-Drug Resistant Organisms: MRSA Year Discovered:: 2010 MDRO Source:: left arm, abdomen Past Surgical History: Ablation, Appendectomy, Bariatric Surgery, Cholecystectomy, Orthopedic Surgery, Tubal Ligation Additional Past Surgical History / Comment(s): bilateral carpal tunnel, sinus surgery, neck fusion, left breast biopsy benign Past Anesthesia/Blood Transfusion Reactions: No Reported Reaction Smoking Status: Current every day smoker Surgical - Exam Vital Signs Temp Pulse Resp BP Pulse Ox 98.3 F 88 18 127/88 98 08/08/20 14:41 08/08/20 14:41 08/08/20 14:41 08/08/20 14:41 08/08/20 14:41 Bariatric Checklist Checklist: Plan: Checklist: EGD: 1. Hiatal hernia: 2. H. Pylori: HgbA1c: Vitamin D: Smoking: Current every day smoker Primary care physician referral: Raquel ESCOBAR) Dr Bach's office Psychiatry clearance: Cardiology clearance: Sleep study: Diet journal: VTE risk score: VTE risk level: Rehab needs at discharge:
[2020-08-08 17:00] LABS: HCT 45.8 % (34.0-46.0); HGB 14.9 gm/dL (11.4-16.0); MCHC 32.6 g/dL (31.0-37.0); MCV 95.2 fL (80.0-100.0); Platelet Count 201 k/uL (150-450); RBC 4.81 m/uL (3.80-5.40); RDW 12.7 % (11.5-15.5); WBC 6.2 k/uL (3.8-10.6)
[2020-08-09 02:34] LABS: Hemoglobin A1C 5.2 % (4.0-6.0)
[2020-08-09 02:35] LABS: Ferritin 124.9 ng/mL (10.0-291.0)
[2020-08-09 02:39] LABS: Folate, Serum 6.6 ng/mL
[2020-08-09 02:49] LABS: % Iron Saturation 18.39 (12.00-45.00); Albumin 4.4 g/dL (3.80-4.90); Albumin/Globulin Ratio 1.57 (1.60-3.17); Anion Gap 9.7 mmol/L (4.00-12.00); BUN/Creat Ratio 11.25 Ratio (12.00-20.00); Calcium 9.6 mg/dL (8.7-10.3); Carbon Dioxide 27.3 mmol/L (21.6-31.8); Chol/HDL Ratio 3.2; Globulin 2.8 g/dL (1.6-3.3); LDL Cholesterol,Calculated 102.2 mg/dL (0.0-131.0); Magnesium 2.1 mg/dL (1.5-2.4); Non-African American GFR(CKD) 87.2 (60.0-200.0); Phosphorus 4.4 mg/dL (2.4-5.1); Potassium 4.3 mmol/L (3.5-5.5); Total Bilirubin 0.5 mg/dL (0.2-1.2); Total Protein 7.2 g/dL (6.2-8.2); VLDL Calculation 16.8 mg/dL (5.00-40.00)
[2020-08-09 04:42] LABS: INR 0.97 (0.90-1.11); Partial Thromboplastin Time 27.8 sec (24.7-29.9); Prothrombin Time 10.4 sec (9.9-11.9)
[2020-08-09 13:26] LABS: Zinc, Serum 76 ug/dL (60-130)
[2020-08-10 12:24] LABS: Vit B1(Thiamine) 68 ug/L (38-122)
[2020-08-11 00:25] LABS: Selenium 112 mcg/L (63-160)
[2020-08-14 12:23] LABS: Vitamin A 38 ug/dL (38-106)
== END | disposition home or self-care (01) ==
LOC: BARWHC3 14:24
PROVIDERS: ATTEND Surgery Plastic and Reconstructive Surgery
DX: Z48.815 Encounter for surgical aftercare following surgery on the digestive system (principal); Z98.84 Bariatric surgery status; E89.1 Postprocedural hypoinsulinemia; K90.89 Other intestinal malabsorption; K74.1 Hepatic sclerosis; N19 Unspecified kidney failure; K50.90 Crohn's disease, unspecified, without complications; D50.8 Other iron deficiency anemias; E44.0 Moderate protein-calorie malnutrition; E55.9 Vitamin D deficiency, unspecified
CPT/HCPCS: 84255; 84134; 84425; 80061; 80053; 82607; 82728; 82525; 82746; 83540; 83550; 83735; 84100; 84443; 84590; 84630; 85027; 85610; 85730; 82306; 83970; 83036; G0463; 99201

== ENCOUNTER → 2020-08-09 | Outpatient (CLI) | payer MEDICARE, OTHER ==
[2020-08-09 13:52] VITALS: BP 110/79; PULSE 87; RESP 12; TEMP 98.5
--- NOTE | 2020-08-09 14:02 | P.PN ---
Subjective Progress Note Date: 08/09/20 Principal diagnosis: Intraductal papillomatosis left breast History of intraductal papillomatosis Zulema is a 49 year old white female who had a routine mammogram performed on 96. This revealed some nodular asymmetry in the lateral aspect of the left breast for which a diagnostic [place] [address]. This revealed a 6 mm in diameter density not present on prior mammograms. An ultrasound was performed and ultrasound did not show any cystic or solid lesions of concern. The patient herself does not feel anything of concern in her breast. The patient denies any masses nipple discharge or skin changes. She has had 2 prior left breast core biopsies which were benign. Her last biopsy was over ten years ago. In November 2019 she underwent a core biopsy stereotactically this revealed fat necrosis, intraductal papillomatosis, negative for malignancy. She has not noted any lumps masses or nodules in her breast. No nipple discharge or skin changes. She has no recent history of any trauma or infection in the breast. She hasd a bilateral mammogram on 08-03-10. This was benign BIRAD 2. She drinks Mountian Dew 2/20 oz /day, no coffee; Smokes <1PPD, she is not exposed to second hand smoke, she does not eat chocolate Family History: maternal aunt: of breast cancer in 40's paternal aunt: bilateral mastectomy, bilateral breast cancer Hormonal History: menarche: 12 , 1 miscarage, breast fed: none, first born at 22 menopasue:ablation done at 41 no periods since than, uncertain if have gone through menopause BCP: 15 years hormones: none Surgical history: 1. Cervical fusion 2. tubal Ligation 3. Bilateral carpal tunnel 4. cholycystectomy 5. weight loss surgery 6. appendectomy Medical History: 1. asthma 2. back pain/ DJD 3. spinal stenosis ROS: HEENT: none Respiratory: none Cardiac: none GI: none : none Musculoskeletal: Spinal stenosis/degenerative disc disease, arthritis Neurologic: Numbness and weakness in hands and legs Psychiatric: Negative Hematologic: Negative Integument: Negative ALLERGIES: Seasonal ALLERGIES Social History: smoke: less than 1 PPD stopped since 18 alcohol: none drugs: none Objective - Exam BMI 34.6 - Constitutional General appearance: Present: average body habitus - EENT Eyes: Present: EOMI ENT: Present: hearing grossly normal - Neck Neck: Present: normal ROM - Respiratory Respiratory: bilateral: CTA - Cardiovascular Rhythm: regular Heart sounds: normal: S1, S2 - Gastrointestinal General gastrointestinal: Present: normal bowel sounds, soft - Integumentary Integumentary: Present: normal turgor - Musculoskeletal Musculoskeletal: Present: gait normal - Psychiatric Psychiatric: Present: A&O x's 3, appropriate affect, intact judgment & insight - Additional findings Additional findings: breast exam: BRA: 44DD inspection: Bilateral grade 3 ptosis Palpation: Right breast: Multi-positional exam fibrocystic changes, no dominant masses or nodules of concern Right axilla: No adenopathy of concern left breast: Multiple positional exam fibrocystic changes, no dominant masses or nodules of concern Left axilla: No adenopathy of concern Assessment and Plan Assessment: Impression: 1. asthma 2. back pain/ DJD 3. spinal stenosis 4. Bilateral fibrocystic breast changes Plan: 1. Medical management of medical conditions 2. Repeat bilateral mammogram in 1 year with physician exam at that time 3. If patient notes any changes or concerns she will see us sooner CC: DR. Bach encounter 15 minutes, > 50% of time in planning and counselling
== END | disposition home or self-care (01) ==
LOC: WWCWWP 13:37
PROVIDERS: ATTEND Surgery
DX: Z53.9 Procedure and treatment not carried out, unspecified reason (principal)

== ENCOUNTER 2023-11-05 15:18 | Emergency (ER) | payer MEDICARE, OTHER ==
--- NOTE | 2023-11-05 15:46 | ED ---
General Adult HPI - General Source: patient, RN notes reviewed Mode of arrival: ambulatory Limitations: no limitations <Parish Wallace - Last Filed: 11/05/23 15:45> <Mariposa Bhardwaj - Last Filed: 11/06/23 01:18> - General Stated complaint: Withdrawal from her medications Time Seen by Provider: 11/05/23 15:45 - History of Present Illness Initial comments: 53-year-old female presents emergency Department chief complaint of weakness. Patient states that she feels like she may be withdrawing from her Lyrica. She states that she has not had her Lyrica since [place] time. Patient states that she's been through withdrawal before but states this is lasting longer than usual. She states she just couldn't make her primary care physician so she did not have her medications. Patient denies any chest pain she's had nausea, generalized weakness, overall not feeling well mild congestion. (Parish Wallace) 53-year-old female presents emergency Department for evaluation of nausea and mild headaches. She states that she thinks she is withdrawing from her Lyrica. She states her last dose was at [place]. She states this his symptoms started the day following [place]. She reports that she has been through withdrawal in the past with this medication but feels that her symptoms are lasting longer than they typically do. She states that she typically takes 200 mg twice a day. She has not been able to get into her primary care provider since it is about 1 hour away from where she lives. She denies chest pain, shortness of breath. She admits to nausea without vomiting. (Mariposa Bhardwaj) - Related Data Home Medications Medication Instructions Recorded Confirmed DULoxetine HCL [Cymbalta] 30 mg PO HS 05/18/20 08/09/20 Cyclobenzaprine [Flexeril] 5 mg PO HS 08/08/20 08/09/20 Pregabalin [Lyrica] 150 mg PO DAILY 08/08/20 08/09/20 Allergies Allergy/AdvReac Type Severity Reaction Status Date / Time No Known Allergies Allergy Verified 08/09/20 13:40 Review of Systems ROS Other: All systems not noted in ROS Statement are negative. <Parish Wallace - Last Filed: 11/05/23 15:45> ROS Other: All systems not noted in ROS Statement are negative. <Mariposa Bhardwaj - Last Filed: 11/06/23 01:18> ROS Statement: Those systems with pertinent positive or pertinent negative responses have been documented in the HPI. Past Medical History Past Medical History: Fibromyalgia, Osteoarthritis (OA) Additional Past Medical History / Comment(s): degenerative disc disease, back pain History of Any Multi-Drug Resistant Organisms: MRSA Date of last positivie culture/infection: 2010 MDRO Source:: left arm, abdomen Past Surgical History: Ablation, Appendectomy, Bariatric Surgery, Cholecystectomy, Orthopedic Surgery, Tubal Ligation Additional Past Surgical History / Comment(s): bilateral carpal tunnel, sinus surgery, neck fusion, left breast biopsy benign Past Anesthesia/Blood Transfusion Reactions: No Reported Reaction Smoking Status: Current every day smoker <Parish Wallace - Last Filed: 11/05/23 15:45> General Exam <Parish Wallace - Last Filed: 11/05/23 15:45> Limitations: no limitations General appearance: alert, in no apparent distress Head exam: Present: atraumatic, normocephalic, normal inspection Eye exam: Present: normal appearance, PERRL, EOMI. Absent: scleral icterus, conjunctival injection, periorbital swelling ENT exam: Present: normal exam, mucous membranes moist Neck exam: Present: normal inspection. Absent: tenderness, meningismus, lymphadenopathy Respiratory exam: Present: normal lung sounds bilaterally. Absent: respiratory distress, wheezes, rales, rhonchi, stridor Cardiovascular Exam: Present: regular rate, normal rhythm, normal heart sounds. Absent: systolic murmur, diastolic murmur, rubs, gallop, clicks GI/Abdominal exam: Present: soft, normal bowel sounds. Absent: distended, tenderness, guarding, rebound, rigid Extremities exam: Present: normal inspection, full ROM, normal capillary refill. Absent: tenderness, pedal edema, joint swelling, calf tenderness Back exam: Present: normal inspection Neurological exam: Present: alert, oriented X3 Psychiatric exam: Present: normal affect, normal mood Skin exam: Present: warm, dry, intact, normal color. Absent: rash <Mariposa Bhardwaj - Last Filed: 11/06/23 01:18> - General Exam Comments Initial Comments: Visual Physical Exam Vital signs reviewed General: Well-appearing, nontoxic, no acute distress. Head: Normocephalic, atraumatic Eyes: PERRLA, EOMI ENT: Airway patent Chest: Nonlabored breathing Skin: No visual rash, normal skin tone Neuro: Alert and oriented 3 Musculoskeletal: No gross abnormalities (Parish Wallace) Course Vital Signs 11/05/23 16:10 Temperature 98.0 F Pulse Rate 75 Respiratory 18 Rate Blood Pressure 142/88 O2 Sat by Pulse 99 Oximetry Medical Decision Making <Parish Wallace - Last Filed: 11/05/23 15:45> - Lab Data Result diagrams: 11/05/23 16:10 11/05/23 16:10 <Mariposa Bhardwaj - Last Filed: 11/06/23 01:18> - Medical Decision Making I completed the quick note portion of this chart signed Parish Wallace PA-C (Parish Wallace) Was pt. sent in by a medical professional or institution ([facility] [employer], VENDOR QUALITY SUPERVISOR, urgent care, hospital, or shelter...) When possible be specific @ -No Did you speak to anyone other than the patient for history (EMS, parent, family, police, friend...)? What history was obtained from this source @ -No Did you review nursing and triage notes (agree or disagree)? Why? @ -I reviewed and agree with nursing and triage notes Were old charts reviewed (outside hosp., previous admission, EMS record, old EKG, old radiological studies, urgent care reports/EKG's, shelter records)? Report findings @ -No old charts were reviewed Differential Diagnosis (chest pain, altered mental status, abdominal pain women, abdominal pain men, vaginal bleeding, weakness, fever, dyspnea, syncope, headache, dizziness, GI bleed, back pain, seizure, CVA, palpatations, mental health, musculoskeletal)? @ -not applicable EKG interpreted by me (3pts min.). @ -None X-rays interpreted by me (1pt min.). @ -None done CT interpreted by me (1pt min.). @ -None done U/S interpreted by me (1pt. min.). @ -None done What testing was considered but not performed or refused? (CT, X-rays, U/S, labs)? Why? @ -None What meds were considered but not given or refused? Why? @ -None Did you discuss the management of the patient with other professionals (professionals i.e. DrCari, PA, VENDOR QUALITY SUPERVISOR, lab, RT, psych nurse, director social welfare, barrel charrer, teacher, hospital admissions officer, case management specialist)? Give summary @ -No Was smoking cessation discussed for >3mins.? @ -No Was critical care preformed (if so, how long)? @ -No Were there social determinants of health that impacted care today? How? (Homelessness, low income, unemployed, alcoholism, drug addiction, transportation, low edu. Level, literacy, decrease access to med. care, group home, rehab)? @ -No Was there de-escalation of care discussed even if they declined (Discuss DNR or withdrawal of care, Hospice)? DNR status @ -No What co-morbidities impacted this encounter? (DM, HTN, Smoking, COPD, CAD, Cancer, CVA, ARF, Chemo, Hep., AIDS, mental health diagnosis, sleep apnea, morb id obesity)? @ -None Was patient admitted / discharged? Hospital course, mention meds given and route, prescriptions, significant lab abnormalities, going to OR and other pertinent info. @ -Discharged. Patient presented to the emergency department for evaluation of possible medication withdrawal. Laboratory studies obtained. CBC shows to be seizing with a hemoglobin 14.6; CMP shows sodium 140, potassium 3.8, creatinine 0.62; UA shows negative nitrite, negative leukocyte esterase, 1+ ketones likely due to slight dehydration; Covid, influenza, RSV negative. Patient given a dose of Zofran and Toradol in the emergency department which she states improved her symptoms. Patient given a starter pack for Zofran and advised to treat her symptoms . Advised to follow-up with her primary care provider. Patient understanding and agreeable with plan. Patient stable on discharge. Case discussed with Dr. Anne. Undiagnosed new problem with uncertain prognosis? @ -No Drug Therapy requiring intensive monitoring for toxicity (Heparin, Nitro, Insulin, Cardizem)? @ -No Were any procedures done? @ -No Diagnosis/symptom? @ -Nausea, medication withdrawal Acute, or Chronic, or Acute on Chronic? @ -acute Uncomplicated (without systemic symptoms) or Complicated (systemic symptoms)? @ -uncomplicated Side effects of treatment? @ -No Exacerbation, Progression, or Severe Exacerbation? @ -No Poses a threat to life or bodily function? How? (Chest pain, USA, AR, pneumonia, PE, COPD, DKA, ARF, appy, cholecystitis, CVA, Diverticulitis, Homicidal, Suicidal, threat to staff... and all critical care pts) @ -No (Mariposa Bhardwaj) - Lab Data Lab Results 11/05/23 11/05/23 11/05/23 Range/Units 16:10 16:10 16:10 WBC 7.5 (3.8-10.6) k/uL RBC 4.55 (3.80-5.40) m/uL Hgb 14.6 (11.4-16.0) gm/dL Hct 43.0 (34.0-46.0) % MCV 94.7 (80.0-100.0) fL MCH 32.2 (25.0-35.0) pg MCHC 34.0 (31.0-37.0) g/dL RDW 12.6 (11.5-15.5) % Plt Count 212 (150-450) k/uL MPV 9.1 Neutrophils % 72 % Lymphocytes % 15 % Monocytes % 11 % Eosinophils % 2 % Basophils % 1 % Neutrophils # 5.4 (1.3-7.7) k/uL Lymphocytes # 1.1 (1.0-4.8) k/uL Monocytes # 0.8 (0-1.0) k/uL Eosinophils # 0.1 (0-0.7) k/uL Basophils # 0.0 (0-0.2) k/uL Sodium 140 (137-145) mmol/L Potassium 3.8 (3.5-5.1) mmol/L Chloride 105 (98-107) mmol/L Carbon Dioxide 23 (22-30) mmol/L Anion Gap 12 mmol/L BUN 10 (7-17) mg/dL Creatinine 0.62 (0.52-1.04) mg/dL Est GFR (CKD-EPI)AfAm >90 (>60 ml/min/1.73 sqM) Est GFR (CKD-EPI)NonAf >90 (>60 ml/min/1.73 sqM) Glucose 93 (74-99) mg/dL Calcium 9.3 (8.4-10.2) mg/dL Magnesium 1.9 (1.6-2.3) mg/dL Total Bilirubin 1.2 (0.2-1.3) mg/dL AST 24 (14-36) U/L ALT 15 (4-34) U/L Alkaline Phosphatase 91 (38-126) U/L Total Protein 7.7 (6.3-8.2) g/dL Albumin 4.5 (3.5-5.0) g/dL Urine Color Colorless Urine Appearance Clear (Clear) Urine pH 5.5 (5.0-8.0) Ur Specific [place] 1.005 (1.001-1.035) Urine Protein Negative (Negative) Urine Glucose (UA) Negative (Negative) Urine Ketones 1+ H (Negative) Urine Blood Negative (Negative) Urine Nitrite Negative (Negative) Urine Bilirubin Negative (Negative) Urine Urobilinogen <2.0 (<2.0) mg/dL Ur Leukocyte Esterase Negative (Negative) Influenza Type A (PCR) (Not Detectd) Influenza Type B (PCR) (Not Detectd) RSV (PCR) (Not Detectd) SARS-CoV-2 (PCR) (Not Detectd) 11/05/23 Range/Units 16:10 WBC (3.8-10.6) k/uL RBC (3.80-5.40) m/uL Hgb (11.4-16.0) gm/dL Hct (34.0-46.0) % MCV (80.0-100.0) fL MCH (25.0-35.0) pg MCHC (31.0-37.0) g/dL RDW (11.5-15.5) % Plt Count (150-450) k/uL MPV Neutrophils % % Lymphocytes % % Monocytes % % Eosinophils % % Basophils % % Neutrophils # (1.3-7.7) k/uL Lymphocytes # (1.0-4.8) k/uL Monocytes # (0-1.0) k/uL Eosinophils # (0-0.7) k/uL Basophils # (0-0.2) k/uL Sodium (137-145) mmol/L Potassium (3.5-5.1) mmol/L Chloride (98-107) mmol/L Carbon Dioxide (22-30) mmol/L Anion Gap mmol/L BUN (7-17) mg/dL Creatinine (0.52-1.04) mg/dL Est GFR (CKD-EPI)AfAm (>60 ml/min/1.73 sqM) Est GFR (CKD-EPI)NonAf (>60 ml/min/1.73 sqM) Glucose (74-99) mg/dL Calcium (8.4-10.2) mg/dL Magnesium (1.6-2.3) mg/dL Total Bilirubin (0.2-1.3) mg/dL AST (14-36) U/L ALT (4-34) U/L Alkaline Phosphatase (38-126) U/L Total Protein (6.3-8.2) g/dL Albumin (3.5-5.0) g/dL Urine Color Urine Appearance (Clear) Urine pH (5.0-8.0) Ur Specific [place] (1.001-1.035) Urine Protein (Negative) Urine Glucose (UA) (Negative) Urine Ketones (Negative) Urine Blood (Negative) Urine Nitrite (Negative) Urine Bilirubin (Negative) Urine Urobilinogen (<2.0) mg/dL Ur Leukocyte Esterase (Negative) Influenza Type A (PCR) Not Detected (Not Detectd) Influenza Type B (PCR) Not Detected (Not Detectd) RSV (PCR) Not Detected (Not Detectd) SARS-CoV-2 (PCR) Not Detected (Not Detectd) Disposition <Parish Wallace - Last Filed: 11/05/23 15:45> Is patient prescribed a controlled substance at d/c from ED?: No <Mariposa Bhardwaj - Last Filed: 11/06/23 01:18> Clinical Impression: Nausea without vomiting Disposition: HOME SELF-CARE Condition: Stable Instructions (If sedation given, give patient instructions): Acute Nausea and Vomiting (ED) Additional Instructions: Please follow up with your primary care provider for medication management. Return to the emergency department for new or worsening symptoms. Referrals: Cindy Capps MD [Primary Care Provider] - 1-2 days
[2023-11-05 16:31] VITALS: BP 142/88; PULSE 75; RESP 18; TEMP 98
[2023-11-05 16:55] LABS: Appearance,Urine Clear (Clear); Bilirubin,Urine Negative (Negative); Blood,Urine Negative (Negative); Color,Urine Colorless; Glucose,Urine (UA) Negative (Negative); Ketones,Urine 1+ (Negative); Leukocyte Esterase,Urine Negative (Negative); Nitrite,Urine Negative (Negative); PH, Urine 5.5 (5.0-8.0); Protein,Urine Negative (Negative); Specific Gravity,Urine 1.005 (1.001-1.035); Urobilinogen,Urine <2.0 mg/dL (<2.0)
[2023-11-05 17:03] LABS: Basophils % (A) 1 %; Eosinophils # (A) 0.1 k/uL (0-0.7); Eosinophils % (A) 2 %; HGB 14.6 gm/dL (11.4-16.0); Lymphocytes # (A) 1.1 k/uL (1.0-4.8); Lymphocytes % (A) 15 %; MCH 32.2 pg (25.0-35.0); MCV 94.7 fL (80.0-100.0); Mean Platelet Volume 9.1; Monocytes # (A) 0.8 k/uL (0-1.0); Monocytes % (A) 11 %; Neutrophils # (A) 5.4 k/uL (1.3-7.7); Neutrophils % (A) 72 %; Platelet Count 212 k/uL (150-450); RBC 4.55 m/uL (3.80-5.40); RDW 12.6 % (11.5-15.5); WBC 7.5 k/uL (3.8-10.6)
[2023-11-05 17:20] LABS: ALT 15 U/L (4-34); AST 24 U/L (14-36); African American GFR (CKD) >90 (>60 ml/min/1.73 sqM); Albumin 4.5 g/dL (3.5-5.0); Alkaline Phosphatase 91 U/L (38-126); Anion Gap 12 mmol/L; Blood Urea Nitrogen 10 mg/dL (7-17); Calcium 9.3 mg/dL (8.4-10.2); Carbon Dioxide 23 mmol/L (22-30); Chloride 105 mmol/L (98-107); Glucose 93 mg/dL (74-99); Magnesium 1.9 mg/dL (1.6-2.3); Non-African American GFR(CKD) >90 (>60 ml/min/1.73 sqM); Potassium 3.8 mmol/L (3.5-5.1); Sodium 140 mmol/L (137-145); Total Bilirubin 1.2 mg/dL (0.2-1.3); Total Protein 7.7 g/dL (6.3-8.2)
[2023-11-05] MEDS ORDERED: ONDANSETRON 4 MG/2 ML VIAL IVP STA (18:37)
[2023-11-05] MEDS ORDERED: KETOROLAC 15 MG/ML 1 ML VIAL IVP STA (18:37)
[2023-11-05] MEDS ORDERED: ONDANSETRON 4 MG ODT STARTER PACK 2 TAB BTL PO STA (19:26)
== END 2023-11-05 20:04 | disposition home or self-care (01) ==
LOC: EC 15:18
DX: R11.0 Nausea (principal); F17.200 Nicotine dependence, unspecified, uncomplicated; Z20.822 Contact with and (suspected) exposure to COVID-19
CPT/HCPCS: 36415; 80053; 83735; 85025; 81003; 87636; 99284; 96374; 96375; J2405; J1885; S0119

== ENCOUNTER → 2025-01-17 | Outpatient (CLI) | payer MEDICARE, OTHER ==
[2025-01-17 23:38] LABS: Alternaria alternata IgE <0.10 kU/L; Aspergillus fumagatus IgE <0.10 kU/L; Birch IgE <0.10 kU/L; Cat Epith & Dander IgE <0.10 kU/L; Cladosporian herbarum IgE <0.10 kU/L; Cockroach IgE <0.10 kU/L; Dermato. farinae IgE <0.10 kU/L; Dog Dander IgE <0.10 kU/L; Elm IgE <0.10 kU/L; Maple (Box Elder) IgE <0.10 kU/L; Oak IgE <0.10 kU/L; Ragweed,Common IgE <0.10 kU/L; Red Top (Bentgrass) IgE <0.10 kU/L
[2025-01-18 00:22] LABS: Immunoglobulin E <5.00 IU/mL (0.00-114.00)
== END | disposition home or self-care (01) ==
LOC: LABWHC1 13:01
PROVIDERS: ATTEND Otolaryngology
DX: J30.89 Other allergic rhinitis (principal)
CPT/HCPCS: 36415; 82785; 86003

== ENCOUNTER → 2025-02-01 | Outpatient (CLI) | payer MEDICARE ==
--- NOTE | 2025-02-01 12:58 | BD ---
EXAMINATION TYPE: Axial Bone Density DATE OF EXAM: 02/01/2025 CLINICAL HISTORY: 54 years old Female. 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 History of Fracture in Adulthood: yes 3. Menopause before 45: unsure, ablation Current Tobacco Use: yes, marajauna, and vaping RISK FACTORS HISTORY OF: hx of left forearm fracture as an adult MEDICATIONS: only 2 days of vit d, lyrica, RLS meds EXAM MEASUREMENTS: Bone mineral densitometry was performed using the [employer]. Bone mineral density as measured about the Lumbar spine is: ----- L1-L4(G/cm2): 0.996 T Score Values are as follows: ----- L1: -1.7 ----- L2: -1.9 ----- L3: -1.3 ----- L4: -1.4 ----- L1-L4: -1.5 Z Score Values are as follows: ----- L1: -1.8 ----- L2: -2.0 ----- L3: -1.4 ----- L4: -1.5 ----- L1-L4: -1.6 Bone mineral density is her first bone density test, baseline study. Bone mineral density about the R hip (g/cm2): 0.841 Bone mineral density about the L hip (g/cm2): 0.950 T Score values are as follows: -----R Neck: -1.7 -----L Neck: -1.1 -----R Total: -1.3 -----L Total: -0.5 Z Score values are as follows: -----R Neck: -1.2 -----L Neck: -0.7 -----R Total: -1.3 -----L Total: -0.4 Bone mineral density is her first dexxa study, baseline. FRAX%s: The graph provided illustrates a 10.6% chance for a major osteoporotic fx and a 1.7% chance f or the hips probability for fx in 10 years time. IMPRESSION: Osteopenia (T Score between -2.5 and -1). There is slightly increased risk of fracture and the patient may be considered for treatment. Re-Screen 2-5 years. NOTE: T-SCORE=SD OF THE YOUNG ADULT MEAN. [facility], , 02/01/2025 12:56 PM
== END | disposition home or self-care (01) ==
LOC: RADBDWWP 10:49
PROVIDERS: ATTEND Internal Medicine Geriatric Medicine
DX: M85.89 Other specified disorders of bone density and structure, multiple sites (principal)
CPT/HCPCS: 77080